=== PATIENT | female | born 1990 | race Caucasian/White ===

== ENCOUNTER 2017-07-28 04:10 | Inpatient (IN) | payer BC ==
[2017-07-28] MEDS ORDERED: METHYLERGONOVINE MALEATE 0.2 MG/ML SOL IM PRN (04:58)
[2017-07-28] MEDS ORDERED: LACTATED RINGERS 1,000 ML IV PRN (04:58)
[2017-07-28] MEDS ORDERED: CARBOPROST 250 MCG/ML SOL IM PRN (04:58)
[2017-07-28] MEDS ORDERED: FENTANYL 100MCG/2ML SOL IV PRN (04:58)
[2017-07-28] MEDS ORDERED: MEPIVACAINE HCL 1% MPF 30 ML SOL INFIL PRN (04:58)
[2017-07-28] MEDS ORDERED: SODIUM CHLORIDE 0.9% FLUSH 10 ML SOL IV PRN (04:58)
[2017-07-28] MEDS ORDERED: OXYTOCIN 10000 MU/ML SOL IM PRN (04:58)
[2017-07-28] MEDS: SODIUM CHLORIDE 0.9% FLUSH 10 ML SOL IV SCH ×3 (05:00→21:31)
[2017-07-28] MEDS ORDERED: CEFAZOLIN SODIUM 1 GM PDS 2 GM in SODIUM CHLORIDE 0.9% 100 ML 100 ML IV ONE (06:56)
[2017-07-28] MEDS ORDERED: CEFAZOLIN SODIUM 1 GM PDS ONE (07:00)
[2017-07-28 07:24] LABS: BASOPHILS % (AUTO) 1 % (0-3); EOSINOPHILS % (AUTO) 1 % (0-9); HEMATOCRIT 34 % (35-47); MEAN CORPUSCULAR HGB CONC 33.9 gm/dl (32.0-36.0); MONOCYTES % (AUTO) 5.8 % (0-12); NEUTROPHILS % (AUTO) 62.3 % (37-80)
[2017-07-28 07:32] LABS: MEAN CORPUSCULAR VOLUME 80 fL (81-99)
[2017-07-28] MEDS: LACTATED RINGERS 1,000 ML IV SCH ×5 (07:45→18:25)
[2017-07-28] MEDS ORDERED: NALOXONE HYDROCHLORIDE 0.4 MG/ML SOL IV PRN (07:51)
[2017-07-28] MEDS ORDERED: NALBUPHINE HCL 20 MG/ML SOL IV PRN (07:51)
[2017-07-28] MEDS ORDERED: EPHEDRINE SULFATE 50 MG/ML SOL IV PRN (07:51)
[2017-07-28] MEDS ORDERED: DIPHENHYDRAMINE 50 MG/ML SOL IV PRN (07:51)
[2017-07-28] MEDS ORDERED: LIDOCAINE HCL 2% MPF SOL ONE ×2 (07:59→08:46)
[2017-07-28] MEDS ORDERED: FENTANYL 250 MCG/ 5ML SOL ONE (08:24)
[2017-07-28] MEDS ORDERED: ROPIVACAINE HYDROCHLORIDE 5 MG/ML SOL ONE (08:24)
[2017-07-28] MEDS ORDERED: [UNRECOGNIZED DRUG - OTHER] IV SCH (12:00)
[2017-07-28] MEDS ORDERED: OXYTOCIN 10000 MU/ML SOL ONE (12:04)
[2017-07-28] MEDS ORDERED: LACTATED RINGERS 1,000 ML ONE (12:05)
[2017-07-28] MEDS ORDERED: TERBUTALINE SULFATE 1 MG/ML SOL ONE (12:05)
[2017-07-28] MEDS ORDERED: TERBUTALINE SULFATE 1 MG/ML SOL SC PRN (12:19)
[2017-07-28] MEDS ORDERED: OXYTOCIN 10000 MU/ML 20,000 MU in LACTATED RINGERS 1,000 ML IV SCH (12:30)
[2017-07-28] MEDS ORDERED: LACTATED RINGERS 1,000 ML IV SCH (12:30)
[2017-07-28] MEDS ORDERED: FLEET ENEMA PR PRN (14:44)
[2017-07-28] MEDS ORDERED: WITCH HAZEL 1 EA PAD TOP PRN (14:44)
[2017-07-28] MEDS ORDERED: TEMAZEPAM 15MG 15 MG CAP PO PRN (14:44)
[2017-07-28] MEDS ORDERED: BENZOCAINE/MENTHOL 1 SPR TOP PRN (14:44)
[2017-07-28] MEDS ORDERED: METHYLERGONOVINE MALEATE 0.2 MG TAB PO PRN (14:44)
[2017-07-28] MEDS ORDERED: BISACODYL 10 MG SUP PR PRN (14:44)
[2017-07-28] MEDS ORDERED: IBUPROFEN 600 MG TAB ONE (14:44)
[2017-07-28] MEDS ORDERED: APAP/HYDROCODONE 325/5 TAB PO PRN (14:44)
[2017-07-28] MEDS ORDERED: CEFAZOLIN (PREMIX) 1 GM 1 GM/50 ML SOL IV SCH (15:00)
[2017-07-28] MEDS: IBUPROFEN 600 MG TAB PO PRN ×2 (15:02→21:59)
[2017-07-28] MEDS ORDERED: DOCUSATE SODIUM 100 MG SGL PO SCH (21:00)
[2017-07-28] MEDS ORDERED: INFLUENZA VIRUS VACCINE 0.5 ML SUS IM ONE ×2 (21:21→21:38)
[2017-07-28] MEDS ORDERED: DOCUSATE SODIUM 100 MG SGL ONE (21:37)
[2017-07-28 22:34] VITALS: BP 124/82; PULSE 80; RESP 14; TEMP 98.3; O2SAT 98
[2017-07-29] MEDS ORDERED: FERROUS SULFATE 325 MG TAB PO SCH (09:00)
[2017-07-29] MEDS ORDERED: FOLIC ACID 1 MG TAB PO SCH (09:00)
[2017-07-29] MEDS ORDERED: MULTIVITAMIN2 1 EA TAB PO SCH (09:00)
== END 2017-07-28 23:15 | disposition home or self-care (01) | DRG 560 ==
LOC: OB 04:10 → OBSVTOIN 04:10
PROVIDERS: ADMIT Family Medicine; ATTEND Emergency Medicine
PROC: 10E0XZZ Delivery of Products of Conception, External Approach (ICD-10-PCS; principal; 2017-07-28)
PROC: 0W8NXZZ Division of Female Perineum, External Approach (ICD-10-PCS; 2017-07-28)
PROC: 3E04329 Introduction of Other Anti-infective into Central Vein, Percutaneous Approach (ICD-10-PCS; 2017-07-28)
DX: O99.824 Streptococcus B carrier state complicating childbirth (principal); Z3A.39 39 weeks gestation of pregnancy; Z37.0 Single live birth
CPT/HCPCS: 59025; 85025; 90686; 94762; J0670; J0690; J2590; J2795; J3010; J3105; G0008